=== PATIENT | male | born 1960 | race Caucasian/White ===

== ENCOUNTER 2019-03-07 08:49 | Day surgery (SDC) | payer BC ==
[~2019-03-07] VITALS: Ht 172.7 cm; Wt 85.0 kg
[2019-03-07] VITALS (11 sets, daily range): BP systolic 111–137; BP diastolic 77–106; PULSE 64–80; TEMP 97.9–98.2
[2019-03-07 09:38] LABS: HEMATOCRIT 46.2 % (42.0-52.0); HEMOGLOBIN 15.6 g/dl (13.5-18.0); MEAN CELL VOLUME 88 fl (80.0-100.0); MEAN CORPUSCULAR HEMOGLOBIN 30 pg (27.0-31.0); MEAN CORPUSCULAR HGB CONC 34 g/dl (33.0-37.0); MEAN PLATELET VOLUME 9.4 fl (7.4-10.4); PLATELET COUNT 230 K/mm3 (130-400); RED BLOOD COUNT 5.28 M/mm3 (4.20-5.60)
[2019-03-07] MEDS ORDERED: FLONASEALLERGY NS (09:41)
[2019-03-07] MEDS ORDERED: CLARITIN 1010 MG/TAB PO (09:42)
[2019-03-07] MEDS ORDERED: MOBIC15 MG PO (09:42)
[2019-03-07] MEDS ORDERED: MULTI VITAMINS1 TAB PO (09:43)
[2019-03-07] MEDS ORDERED: LIPITOR20 MG PO (09:43)
[2019-03-07] MEDS ORDERED: KRILL OIL 1,001 EAC1 PO (09:44)
[2019-03-07] MEDS ORDERED: NEXIUM 40MG40 MG PO (09:44)
[2019-03-07] MEDS ORDERED: COREG 6.256.25 MG/TA PO (09:46)
[2019-03-07 09:47] LABS: PROTHROMBIN TIME 11.2 SECONDS (9.7-12.8)
[2019-03-07 09:49] LABS: CALCIUM 9.3 mg/dL (8.4-10.2); CREATININE, serum 0.87 (0.66-1.25)
[2019-03-07] MEDS ORDERED: ASPIRIN E.C. 8181 MG PO (10:06)
--- NOTE | 2019-03-07 10:30 | NUR ---
Ileana MORRIS informed pt had not received pre cath aspirin or 1/2 NS. 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
--- NOTE | 2019-03-07 10:50 | NUR ---
PLEAS SEE MERGE FOR ALL MEDICATION ADMINISTRATION TIMES, RASS ASSESSMENT DATA DURING AND POST PROCEDURE.
--- NOTE | 2019-03-07 11:35 | NUR ---
Pt returned to [facility] 11 per bed s/p heart cath. Pt resting well.
--- NOTE | 2019-03-07 14:20 | NUR ---
Radial compression band removed from R wrist. Site remains soft and C/D/I. Site covered with bandaid and gauze and wrapped with coban. Pt nael well.
--- NOTE | 2019-03-07 14:30 | NUR ---
Pt has ambulated, voided and nael PO intake s n/v. PIV removed with catheter intact.
--- NOTE | 2019-03-07 14:50 | NUR ---
Pt discharged per w/c by nurse with .
== END 2019-03-07 17:01 | disposition home or self-care (01) ==
LOC: COL.CAR 08:49
PROVIDERS: Internal Medicine Cardiovascular Disease
DX: I25.10 Atherosclerotic heart disease of native coronary artery without angina pectoris (principal); I10 Essential (primary) hypertension; E78.5 Hyperlipidemia, unspecified; M19.90 Unspecified osteoarthritis, unspecified site; K21.9 Gastro-esophageal reflux disease without esophagitis; K22.70 Barrett's esophagus without dysplasia; Z90.49 Acquired absence of other specified parts of digestive tract; Z98.52 Vasectomy status; Z86.73 Personal history of transient ischemic attack (TIA), and cerebral infarction without residual deficits; Z87.891 Personal history of nicotine dependence; Z88.8 Allergy status to other drugs, medicaments and biological substances
CPT/HCPCS: J1644; J2250; J3010; Q9967